=== PATIENT | female | born 1955 | race Caucasian/White ===

== ENCOUNTER 2017-01-30 21:07 | Emergency (ER) | payer BC ==
[2017-01-30] MEDS ORDERED: LIDOCAINE 1% INJ-PF (10 MG/ML) 30 ML SDV INJ ONE (22:16)
[2017-01-30] MEDS ORDERED: DIPH/PERTUSS(ACELL)/TETANUS VAC/PF 0.5 ML SYR (>=10YO) IM ONE (22:18)
[2017-01-30] MEDS ORDERED: HYDROCODONE/ACETAMINOPHEN 5-325 MG 6 TAB/DSPK PO PRN (23:02)
--- NOTE | 2017-01-30 23:04 | ER Document Report ---
ED General - General Chief Complaint: Facial Injury Stated Complaint: LIP LACERATION Time Seen by Provider: 01/30/17 22:08 Notes: Patient is a 61-year-old female presents with complaint of a lip laceration. Patient tripped going up her stairs and fell hitting her face against a brick. This causes a large laceration to her left lower lip. No other injuries. No loss of consciousness. No other complaints at this time. She is unsure when her last tetanus shot was. TRAVEL OUTSIDE OF THE [place] IN LAST 30 DAYS: No - Related Data Allergies/Adverse Reactions: penicillin G Allergy (Severe, Verified 01/30/17 22:16) Past Medical History - Social History Smoking Status: Never Smoker Frequency of alcohol use: None Drug Abuse: None Family History: Reviewed & Not Pertinent Patient has suicidal ideation: No Patient has homicidal ideation: No Renal/ Medical History: Denies: Hx Peritoneal Dialysis Review of Systems - Review of Systems Notes: My Normal Review Basic REVIEW OF SYSTEMS: CONSTITUTIONAL : Denies fever, chills, or sweats. Denies recent illness. EENT: Lip laceration MUSCULOSKELETAL: Denies neck or back pain or joint pain or swelling. SKIN: Denies rash or skin lesions. NEUROLOGICAL: Denies altered mental status or loss of consciousness. Denies headache. Denies weakness or paralysis or loss of use of either side. Denies problems with gait or speech. Denies sensory or motor loss. ALL OTHER SYSTEMS REVIEWED AND NEGATIVE. Physical Exam - Vital signs Vitals: Temp Pulse Resp BP Pulse Ox 98.6 F 83 16 142/69 H 94 01/30/17 21:27 01/30/17 21:27 01/30/17 21:27 01/30/17 21:27 01/30/17 21:27 - Notes Notes: General Appearance: Well nourished, alert, cooperative, no acute distress, mild obvious discomfort. Well-appearing. Vitals: reviewed, See vital signs table. Head: No swelling to the face or head. Patient has a laceration to left lower lip. Lacerations approximately 3 cm. It is gaping towards the inferior portion of the laceration. It appears that a small chunk of soft tissue was ripped out during the fall. Laceration does involve the vermilion border. Eyes: PERRL, EOMI, Conjuctiva clear Mouth: No decreasd moisture Neck: Supple, no neck tenderness, Extremities: strength 5/5 in all extremities, good pulses in all extremities, no swelling or tenderness in the extremities, no edema. Skin: warm, dry, appropriate color, no rash Neuro: speech clear, oriented x 3, normal affect, responds appropriately to questions. Cranial nerves II through XII are intact. Course - Re-evaluation Re-evalutation: 01/31/17 06:03 I did sutured closed laceration. I did talk to the patient about the option of being transferred for plastic surgery being that the laceration was complex and appears that some soft tissue was ripped out and therefore the patient has a gaping wound involving the vermilion border of the lip. Patient says that she prefers for me just to repair here. I did repair the laceration. I was able to approximate the vermilion border. Because of the gaping or the laceration there is some slight deformity to the corner of the lip being that I did have to pull together this area. I did show the patient her lip after laceration repair. She is happy with repair. I did again offer for her to go see plastic surgery if she is unhappy with my repair. Patient states she is happy with my repair does not want to see plastic surgery. Will place her on antibiotics to help prevent infection. Informed to return to the ER in 5 days for suture removal. Patient agrees with plan and will be discharged home. - Vital Signs Vital signs: Temp Pulse Resp BP Pulse Ox 98 F 80 18 135/60 H 97 01/30/17 23:35 01/30/17 23:35 01/30/17 23:35 01/30/17 23:35 01/30/17 23:35 Procedures - Laceration/Wound Repair lip Wound length (cm): 3 Wound's Depth, Shape: Irregular Anesthetic type: 1% Lidocaine Volume Anesthetic (mLs): 2 Wound explored: Clean Irrigated w/ Saline (mLs): 30 Wound Repaired With: Sutures Suture Size/Type: 6:0, Ethilon Number of Sutures: 4 Layer Closure?: Yes Deep Layer Suture Size/Type: 5:0, Other - vicryl Number Deep Layer Sutures: 2 Post-procedure NV exam normal: No Complications: No Discharge - Discharge Clinical Impression: Laceration Condition: Good Disposition: HOME, SELF-CARE Additional Instructions: LACERATION CARE: Your laceration has been sutured to keep the skin edges aligned during healing. The time of suture removal depends on the nature and location of your cut. Please follow the care instructions the doctor has outlined for you and return for further care, according to the schedule you've been given. Keep the wound and dressing clean. Unless you were told otherwise, you may shower daily, blotting the wound dry with a clean, unused towel. At other times, If the dressing gets wet or blood soaked, remove it and blot the wound dry, then reapply a new dressing. Unless you were instructed otherwise, dressings should be changed at least daily. If any signs of infection occur (swelling, redness, drainage, increasing tenderness, red streaks, tender lumps in the armpit or groin above the laceration, or fever), see the doctor immediately. SOAP CLEANSING: Gently wash the wound daily using a mild soap (like Ivory, Phisoderm, Neutrogena). Use warm water, rubbing gently until all debris, ooze, and crusting have been washed from the wound. Allow to dry briefly (about 10 minutes) after cleaning. Repeat this cleansing at least three times a day for the first two days and then once or twice a day. TETANUS IMMUNIZATION GIVEN: You have been given an immunization against tetanus. Please record this in your records. In general, a booster is needed only once every 10 years. The tetanus shot protects against tetanus or "lockjaw," which is a complication of certain wound infections (the tetanus shot cannot protect against the actual infection). The immunization site may become warm and red due to local reaction. If this occurs, apply warm compresses and take aspirin or ibuprofen to reduce inflammation and discomfort. Return for evaluation if the reaction becomes severe. PROPHYLACTIC ANTIBIOTIC: The antibiotics which have been prescribed are designed to decrease the risk of infection. Only certain types of wounds benefit from this -- the typical cut, scrape, or burn DOES NOT require antibiotics. Of course, infection can still occur despite the use of prophylactic antibiotics. Your wound will heal with less chance of an infectious complication if you take the medication as directed. The most important dose is the FIRST dose, so don't delay filling the prescription! ORAL NARCOTIC MEDICATION: You have been given a prescription for pain control. This medication is a narcotic. It's best taken with food, as nausea can result if taken on an empty stomach. Don't operate machinery or drive within six hours of taking this medication. Do not combine this medicine with alcohol, or with any medication which can cause sedation (such as cold tablets or sleeping pills) unless you get permission from the physician. Narcotics tend to cause constipation. If possible, drink plenty of fluids and eat a diet high in fiber and fruits. FOLLOW-UP CARE: Your sutures should be removed in __5___ days. To facilitate a timely removal of your sutures, you may return to the Emergency Department at [facility]. You do not need to call for an appointment, but the best time to come in for suture removal is early in the morning. If you have been referred to another physician for follow-up care, call that physicians office for an appointment as you were instructed. If you experience a significant change in your laceration, or if you are concerned there may be an infection (swelling, redness, drainage, increasing tenderness, red streaks, tender lumps in the armpit or groin above the laceration, or fever) , return to the Emergency Department immediately re-evaluation. Prescriptions: Clindamycin HCl 300 mg PO ASDIR #56 capsule
[2017-01-30 23:36] VITALS: BP 135/60
== END 2017-01-30 23:35 | disposition home or self-care (01) ==
LOC: ER 21:07
PROC: 0CQ1XZZ Repair Lower Lip, External Approach (ICD-10-PCS; principal; 2017-01-30)
DX: S01.511A Laceration without foreign body of lip, initial encounter (principal); W10.9XXA Fall (on) (from) unspecified stairs and steps, initial encounter; Z88.0 Allergy status to penicillin; Z23 Encounter for immunization
CPT/HCPCS: 99282; 90715; 12013; J3490

== ENCOUNTER 2017-02-04 10:40 | Emergency (ER) | payer BC ==
[2017-02-04 10:50] VITALS: BP 122/62
--- NOTE | 2017-02-04 11:07 | ER Document Report ---
ED General - General Chief Complaint: Suture Removal Stated Complaint: REMOVE STITCHES Time Seen by Provider: 02/04/17 11:05 TRAVEL OUTSIDE OF THE [place] IN LAST 30 DAYS: No - HPI Patient complains to provider of: Suture removal Notes: Patient coming in for evaluation and suture removal. Sutures have been in for 5 days. Patient has 5 sutures in the left lower lip - Related Data Allergies/Adverse Reactions: penicillin G Allergy (Severe, Verified 02/04/17 10:47) Home Medications: Current Home Medications Aspirin [Aspirin 81 mg Chewable Tablet] 1 tab PO DAILY 02/04/17 [History] [place]-3 Fatty Acids/Fish Oil [[place] 3 Fish Oil Softgel] 1 tab PO DAILY 02/04/17 [History] Simvastatin 40 mg PO DAILY 02/04/17 [History] Past Medical History - Social History Smoking Status: Unknown if Ever Smoked Family History: Reviewed & Not Pertinent Renal/ Medical History: Denies: Hx Peritoneal Dialysis Review of Systems - Review of Systems Constitutional: No symptoms reported EENT: No symptoms reported Cardiovascular: No symptoms reported Respiratory: No symptoms reported Gastrointestinal: No symptoms reported Genitourinary: No symptoms reported Female Genitourinary: No symptoms reported Musculoskeletal: Back pain Skin: No symptoms reported Hematologic/Lymphatic: No symptoms reported Neurological/Psychological: No symptoms reported -: Yes All other systems reviewed and negative Physical Exam - Vital signs Vitals: Temp Pulse Resp BP Pulse Ox 98.1 F 73 16 122/62 97 02/04/17 10:49 02/04/17 10:49 02/04/17 10:49 02/04/17 10:49 02/04/17 10:49 Interpretation: Normal - General General appearance: Appears well, Alert - HEENT Head: Normocephalic. No: Atraumatic - Patient with 5 sutures of the left lower lip well-healed scar Eyes: Normal Pupils: PERRL - Respiratory Respiratory status: No respiratory distress Chest status: Nontender Breath sounds: Normal Chest palpation: Normal - Cardiovascular Rhythm: Regular Heart sounds: Normal auscultation Murmur: No - Abdominal Inspection: Normal Distension: No distension Bowel sounds: Normal Tenderness: Nontender Organomegaly: No organomegaly - Back Back: Normal, Nontender - Extremities General upper extremity: Normal inspection, Nontender, Normal color, Normal ROM , Normal temperature General lower extremity: Normal inspection, Nontender, Normal color, Normal ROM , Normal temperature, Normal weight bearing. No: Toshia's sign - Neurological Neuro grossly intact: Yes Cognition: Normal Orientation: AAOx4 [place] Coma Scale Eye Opening: Spontaneous [place] Coma Scale Verbal: Oriented [place] Coma Scale Motor: Obeys Commands [place] Coma Scale Total: 15 Speech: Normal Motor strength normal: LUE, RUE, LLE, RLE Sensory: Normal - Psychological Associated symptoms: Normal affect, Normal mood - Skin Skin Temperature: Warm Skin Moisture: Dry Skin Color: Normal Course - Re-evaluation Re-evalutation: 02/04/17 14:16 Sutures were removed by PCT patient discharged home - Vital Signs Vital signs: Temp Pulse Resp BP Pulse Ox 98.1 F 73 16 122/62 97 02/04/17 10:49 02/04/17 10:49 02/04/17 10:49 02/04/17 10:49 02/04/17 10:49 Procedures - Additional Procedures Suture removal Notes: 02/04/17 14:17 Wound was cleaned by PCP sutures removed using a suture removal kit was reevaluated well-healed no complications Discharge - Discharge Clinical Impression: Visit for suture removal Condition: Good Disposition: HOME, SELF-CARE Instructions: Suture Removal Additional Instructions: Continue to apply triple antibiotic ointment for protection to prevent scarring. Return with any complications. Referrals: HILARIA HERNADEZ MD [Primary Care Provider] - Follow up as needed
== END 2017-02-04 11:40 | disposition home or self-care (01) ==
LOC: ER 10:40
DX: S01.511D Laceration without foreign body of lip, subsequent encounter (principal); X58.XXXD Exposure to other specified factors, subsequent encounter; Z88.0 Allergy status to penicillin